=== PATIENT | male | born 1985 | race Caucasian/White ===

== ENCOUNTER 2025-04-16 01:54 | Emergency (ER) | payer OTHER ==
[~2025-04-16] VITALS: Ht 182.9 cm; Wt 155.3 kg
[2025-04-16 01:58] VITALS: TEMP 96.5
[2025-04-16 02:21] LABS: APPEARANCE, URINE CLEAR (CLEAR); BACTERIA, URINE AUTO NEGATIVE (NEGATIVE); BILIRUBIN, URINE AUTO NEGATIVE (NEGATIVE); BLOOD, URINE BLOOD 2+ (NEGATIVE); GLUCOSE, URINE (UA) AUTO NEGATIVE (NEGATIVE); KETONE, URINE AUTO NEGATIVE (NEGATIVE); LEUKOCYTE ESTERASE, URINE AUTO NEGATIVE (NEGATIVE); MUCUS, URINE SMALL (NEGATIVE); NITRITE, URINE AUTO NEGATIVE (NEGATIVE); PROTEIN, URINE AUTO NEGATIVE (NEGATIVE); RBC, URINE AUTO 3 /HPF (0-3); SPECIFIC GRAVITY URINE AUTO 1.023 (1.002-1.035); SQUAMOUS EPITHELIAL CELL UR AU 0 /HPF (0-6); UROBILINOGEN, URINE AUTO 0.2 mg/dL (0.0-2.0); WBC, URINE AUTO 0 /HPF (0-3)
[2025-04-16 03:03] LABS: BASO # 0.1 10^3/uL (0.0-0.2); BASO % 0.5 % (0.0-1.0); EOS # 0.1 10^3/uL (0.0-0.5); EOS % 0.9 % (0.0-3.0); LYMPH # 2.0 10^3/uL (1.5-5.0); LYMPH % 17.0 % (24.0-44.0); MONO # 0.8 10^3/uL (0.0-0.8); MONO % 6.7 % (2.0-8.0); NEUTROPHILS # 8.7 10^3/uL (1.5-8.5); NEUTROPHILS % 74.5 % (36.0-66.0); PLATELET COUNT, AUTOMATED 288 10^3/uL (150-450)
[2025-04-16 03:28] LABS: ALT/SGPT 51 U/L (7.0-40); AST/SGOT 35 U/L (<34); CALCIUM LEVEL 9.4 MG/DL (8.5-10.1); CARBON DIOXIDE LEVEL 25 MMOL/L (20-31); CHLORIDE LEVEL 104 MMOL/L (98-107); CREATININE FOR GFR 1.01 MG/DL (0.70-1.30); GLOMERULAR FILTRATION RATE > 90.0 (>60); POTASSIUM SERUM 5.0 MMOL/L (3.5-5.1); SODIUM LEVEL 139 MMOL/L (136-145)
[2025-04-16] MEDS: ONDANSETRON 4MG/2ML VIAL IV ONE (04:25)
[2025-04-16] MEDS: KETOROLAC 30 MG/ML 1 ML VIAL IV ONE (04:25)
[2025-04-16] MEDS ORDERED: KETO-204 PO (06:56)
[2025-04-16] MEDS ORDERED: TAMS-18 PO (06:56)
[2025-04-16 07:20] VITALS: BP 124/74; O2SAT 96
== END 2025-04-16 07:23 | disposition home or self-care (01) ==
LOC: M ED 01:54
DX: N20.0 Calculus of kidney (principal); Z79.2 Long term (current) use of antibiotics; Z79.899 Other long term (current) drug therapy
CPT/HCPCS: 74176; 80048; 80076; 81001; 83605; 83690; 85025; 96374; 99284; J1885; J2405

== ENCOUNTER 2025-04-19 08:33 | Emergency (ER) | payer OTHER ==
[~2025-04-19] VITALS: Ht 175.3 cm; Wt 69.5 kg
[~2025-04-19 08:33] MED LIST: KETO-204 PO; TAMS-18 PO
[2025-04-19 09:09] LABS: KETONE, URINE AUTO RFX NEGATIVE (NEGATIVE); LEUKOCYTE ESTERASE UR AUTO RFX NEGATIVE (NEGATIVE); MUCUS, URINE RFX SMALL (NEGATIVE); NITRITE, URINE AUTO RFX NEGATIVE (NEGATIVE); RBC, URINE AUTO RFX 2 /HPF (0-3); SQUAM EPITHELIAL CELL UR AURFX 0 /HPF (0-6); WBC, URINE AUTO RFX 0 /HPF (0-3)
[2025-04-19] MEDS ORDERED: KETO-204 PO (10:16)
[2025-04-19] MEDS ORDERED: TAMS-18 PO (10:16)
[2025-04-19] MEDS ORDERED: HOME MED LIST COMPLETE! XX SCH (10:20)
[2025-04-19] MEDS: KETOROLAC 30 MG/ML 1 ML VIAL IV ONE (11:19)
[2025-04-19] MEDS: METHOCARBAMOL 1,000 MG/10 ML VIAL IV ONE (11:19)
[2025-04-19 11:33] LABS: BASO # 0.1 10^3/uL (0.0-0.2); BASO % 0.5 % (0.0-1.0); EOS # 0.2 10^3/uL (0.0-0.5); EOS % 1.8 % (0.0-3.0); LYMPH # 2.6 10^3/uL (1.5-5.0); LYMPH % 20.1 % (24.0-44.0); MONO # 1.6 10^3/uL (0.0-0.8); MONO % 12.5 % (2.0-8.0); NEUTROPHILS # 8.5 10^3/uL (1.5-8.5); NEUTROPHILS % 64.6 % (36.0-66.0); PLATELET COUNT, AUTOMATED 296 10^3/uL (150-450)
[2025-04-19 12:03] LABS: CALCIUM LEVEL 9.4 MG/DL (8.5-10.1); CARBON DIOXIDE LEVEL 26.0 MMOL/L (20-31); CHLORIDE LEVEL 102.0 MMOL/L (98-107); CREATININE FOR GFR 1.75 MG/DL (0.70-1.30); GLOMERULAR FILTRATION RATE 50.2 (>60); POTASSIUM SERUM 4.9 MMOL/L (3.5-5.1); SODIUM LEVEL 138.0 MMOL/L (136-145)
[2025-04-19] MEDS: NS (Normal Saline) 0.9% 1,000 ML IV ONE (12:28)
[2025-04-19 15:04] VITALS: BP 169/101; O2SAT 98
[2025-04-19] MEDS ORDERED: ONDA-282 PO (15:08)
[2025-04-19 15:18] VITALS: TEMP 97.9
== END 2025-04-19 15:29 | disposition home or self-care (01) ==
LOC: M ED 08:33
DX: N20.0 Calculus of kidney (principal); N17.9 Acute kidney failure, unspecified; Z79.2 Long term (current) use of antibiotics; Z79.899 Other long term (current) drug therapy
CPT/HCPCS: 74176; 80048; 81001; 85025; 96361; 96374; 99285; J1885; J2800